=== PATIENT | female | born 1980 | race Caucasian/White ===

== ENCOUNTER 2018-06-04 11:52 | Inpatient (IN) | payer MEDICAID ==
[2018-06-04 13:02] LABS: WHITE BLOOD COUNT 27.7 10^3/ul (4.8-10.8)
[2018-06-04 13:02] LABS: ABNORMAL IP MESSAGE 1; HEMATOCRIT 37.9 % (37.0-47.0); HEMOGLOBIN 12.8 g/dl (12.0-16.0); MEAN CORPUSCULAR HEMOGLOBIN 30.5 pg (29.0-33.0); MEAN CORPUSCULAR HGB CONC 33.8 g/dl (32.0-37.0); MEAN CORPUSCULAR VOLUME 90.2 fl (82.0-101.0); MEAN PLATELET VOLUME 10.4 fl (7.4-10.4); PLATELET COUNT 630 10^3/UL (140-415); RED CELL DISTRIBUTION WIDTH 14.8 % (11.5-14.5)
[2018-06-04 13:03] LABS: POSITIVE DIFF @See below
[2018-06-04 13:04] LABS: ADD MAN DIFF? YES
[2018-06-04] MEDS: ONDANSETRON 4 MG INJ IV (13:06)
[2018-06-04] MEDS: SOD CHLORIDE 0.9% 500 ML IV (13:06)
[2018-06-04] MEDS: HYDROmorphONE 1 MG/ML SYG IV (13:07)
[2018-06-04 13:25] LABS: ALANINE AMINOTRANSFERASE 65 IU/L (13-69); ALBUMIN 3.1 g/dl (3.3-4.9); ALBUMIN/GLOBULIN RATIO 0.91; ALKALINE PHOSPHATASE 179 IU/L (42-121); ANION GAP 17 (5-13); ASPARTATE AMINO TRANSFERASE 86 IU/L (15-46); BILIRUBIN,INDIRECT 0.3 mg/dl (0-1.1); BILIRUBIN,TOTAL 0.3 mg/dl (0.2-1.3); BLOOD UREA NITROGEN 14 mg/dl (7-20); CALCIUM 8.8 mg/dl (8.4-10.2); CARBON DIOXIDE 21 mmol/L (21-31); CHLORIDE 97 mmol/L (97-110); CREATININE 0.56 mg/dl (0.44-1.00); Estimated GFR > 60 mL/min (>60); GLUCOSE 287 mg/dl (70-220); POTASSIUM 4.3 mmol/L (3.5-5.1); SODIUM 135 mmol/L (135-144); TOTAL PROTEIN 6.5 g/dl (6.1-8.1)
[2018-06-04 13:49] LABS: ANISOCYTOSIS 2+ (0-0); BAND NEUTROPHILS #M 3.6 10^3/ul (0.0-0.6); BAND NEUTROPHILS % (M) 13 % (0-4); LYMPHOCYTES #M 2.7 10^3/ul (0.8-2.9); LYMPHOCYTES % (M) 10 % (15-51); METAMYELOCYTES #M 0.5 10^3/ul (0.0-0.0); METAMYELOCYTES %M 2 % (0-0); MONOCYTE #M 1.3 10^3/ul (0.3-0.9); MONOCYTES % (M) 5 % (0-11); MYELOCYTES #M 0.8 10^3/ul (0.0-0.0); MYELOCYTES % (M) 3 % (0-0); PLATELET ESTIMATE INCREASED; RBC MORPHOLOGY COMMENT @See below; REACTIVE LYMPHOCYTES #M 1.1 10^3/ul (0.0-0.0); REACTIVE LYMPHOCYTES% (M) 4 % (0-0); SEG NEUT #M 18.4 10^3/ul (1.6-7.5); SEGMENTED NEUTROPHILS (M) % 63 % (39-77); SMUDGE%M 5 % (0-0); WBC MORPHOLOGY COMMENT @See below
[2018-06-04 14:07] LABS: CREATINE KINASE < 20 IU/L (23-200)
[2018-06-04 14:09] LABS: ADD UMIC NO; UR ASCORBIC ACID NEGATIVE (NEGATIVE); UR BILIRUBIN (Dip) NEGATIVE (NEGATIVE); UR BLOOD (Dip) NEGATIVE (NEGATIVE); UR CLARITY CLEAR (CLEAR); UR COLOR STRAW (YELLOW); UR GLUCOSE (Dip) 1+ mg/dL (NEGATIVE); UR KETONES (Dip) NEGATIVE (NEGATIVE); UR LEUKOCYTE ESTERASE (Dip) NEGATIVE Leu/ul (NEGATIVE); UR NITRITE (Dip) NEGATIVE (NEGATIVE); UR SPECIFIC GRAVITY (Dip) 1.004 (1.003-1.030); UR TOTAL PROTEIN (Dip) NEGATIVE (NEGATIVE); UR UROBILINOGEN (Dip) NEGATIVE (NEGATIVE)
[2018-06-04 14:19] LABS: RHEUMATOID FACTOR NEGATIVE (NEGATIVE)
[2018-06-04] MEDS ORDERED: SOD CHLORIDE 0.9% 1,000 ML IV (14:31)
[2018-06-04] MEDS: METHYLPRED. NA SUCC 500 MG in DEXTROSE 5% 50 ML IVPB (14:36)
[2018-06-04 14:57] LABS: GAMMA GLUTAMYL TRANSPEPTIDASE 355 IU/L (0-50)
[2018-06-04 15:00] LABS: HEMOGLOBIN A1C 5.5 % (0-5.9)
[2018-06-04] MEDS ORDERED: ACETAMINOPHEN 325 MG TAB PO (15:00)
[2018-06-04] MEDS ORDERED: ONDANSETRON 4 MG INJ IV (15:00)
[2018-06-04] MEDS ORDERED: NACL 0.9% 3 ML SYG IV (15:00)
[2018-06-04 15:19] LABS: C-REACTIVE PROTEIN 22.6 mg/dl (0.0-0.9)
[2018-06-04] MEDS ORDERED: LORAZEPAM 2 MG INJ IV (15:30)
[2018-06-04 15:58] LABS: ERYTHROCYTE SEDIMENTATION RATE 113 mm/Hr (0-20)
[2018-06-04] MEDS: INSULIN ASPART [NOVOLOG] 3 ML PEN SC ×2 (17:51→21:25)
[2018-06-04] MEDS: PIPER-TAZO 3.375 GM IV (PMX) 100 ML IVPB ×2 (18:00→23:52)
[2018-06-04] MEDS: SOD CHLORIDE 0.9% 1,000 ML IV (18:00)
[2018-06-04] MEDS: morphine 2 MG INJ IV (18:31)
[2018-06-04 18:50] LABS: TROPONIN-I < 0.012 ng/ml (0.000-0.120)
[2018-06-04 19:05] LABS: LACTIC ACID 2.6 mmol/L (0.5-2.0)
[2018-06-04] MEDS ORDERED: HEPARIN 5,000 UNIT/0.5 ML VIAL (21:14)
[2018-06-04] MEDS: HYDROCODONE/APAP (5/325) TAB PO (21:20)
[2018-06-04] MEDS: GABAPENTIN 300 MG CAP PO (21:20)
[2018-06-04] MEDS: HEPARIN SODIUM 5,000 UNIT/ML VIAL SC (21:23)
[2018-06-05 01:27] LABS: TROPONIN-I < 0.012 ng/ml (0.000-0.120)
[2018-06-05] MEDS: ACCU-CHEK XX (02:00)
[2018-06-05] MEDS: morphine 2 MG INJ IV ×2 (02:18→14:47)
[2018-06-05] MEDS ORDERED: HEPARIN 5,000 UNIT/0.5 ML VIAL ×3 (03:56→20:22)
[2018-06-05 05:19] LABS: ABNORMAL IP MESSAGE 1; HEMATOCRIT 32.4 % (37.0-47.0); HEMOGLOBIN 11.2 g/dl (12.0-16.0); MEAN CORPUSCULAR HEMOGLOBIN 30.6 pg (29.0-33.0); MEAN CORPUSCULAR HGB CONC 34.6 g/dl (32.0-37.0); MEAN CORPUSCULAR VOLUME 88.5 fl (82.0-101.0); MEAN PLATELET VOLUME 11.1 fl (7.4-10.4); PLATELET COUNT 517 10^3/UL (140-415); RED BLOOD COUNT 3.66 10^6/ul (4.20-5.40); RED CELL DISTRIBUTION WIDTH 14.7 % (11.5-14.5)
[2018-06-05 05:19] LABS: WHITE BLOOD COUNT 23.9 10^3/ul (4.8-10.8)
[2018-06-05 05:33] LABS: POSITIVE DIFF @See below
[2018-06-05 05:35] LABS: ADD MAN DIFF? YES
[2018-06-05 05:46] LABS: ALANINE AMINOTRANSFERASE 51 IU/L (13-69); ALBUMIN/GLOBULIN RATIO 0.68; ALKALINE PHOSPHATASE 150 IU/L (42-121); ANION GAP 10 (5-13); ASPARTATE AMINO TRANSFERASE 56 IU/L (15-46); BILIRUBIN,INDIRECT 0.1 mg/dl (0-1.1); BILIRUBIN,TOTAL 0.1 mg/dl (0.2-1.3); BLOOD UREA NITROGEN 15 mg/dl (7-20); CALCIUM 8.4 mg/dl (8.4-10.2); CARBON DIOXIDE 26 mmol/L (21-31); CHLORIDE 100 mmol/L (97-110); CREATININE 0.49 mg/dl (0.44-1.00); Estimated GFR > 60 mL/min (>60); GLUCOSE 162 mg/dl (70-220); POTASSIUM 4.5 mmol/L (3.5-5.1); SODIUM 136 mmol/L (135-144); TOTAL PROTEIN 4.9 g/dl (6.1-8.1)
[2018-06-05] MEDS: PIPER-TAZO 3.375 GM IV (PMX) 100 ML IVPB ×4 (05:51→23:12)
[2018-06-05 05:52] LABS: TROPONIN-I < 0.012 ng/ml (0.000-0.120)
[2018-06-05] MEDS: HEPARIN SODIUM 5,000 UNIT/ML VIAL SC ×3 (05:56→21:14)
[2018-06-05] MEDS: HYDROCODONE/APAP (5/325) TAB PO ×3 (07:50→21:05)
[2018-06-05] MEDS: GABAPENTIN 300 MG CAP PO ×3 (08:31→21:05)
[2018-06-05] MEDS: INSULIN ASPART [NOVOLOG] 3 ML PEN SC ×4 (08:39→21:00)
[2018-06-05 10:01] LABS: ANISOCYTOSIS 1+ (0-0); BAND NEUTROPHILS #M 3.3 10^3/ul (0.0-0.6); BAND NEUTROPHILS % (M) 14 % (0-4); BURR CELLS 1+ (0-0); LYMPHOCYTES #M 1.9 10^3/ul (0.8-2.9); LYMPHOCYTES % (M) 8 % (15-51); METAMYELOCYTES #M 0.9 10^3/ul (0.0-0.0); METAMYELOCYTES %M 4 % (0-0); MONOCYTE #M 1.4 10^3/ul (0.3-0.9); MONOCYTES % (M) 6 % (0-11); MYELOCYTES #M 1.6 10^3/ul (0.0-0.0); MYELOCYTES % (M) 7 % (0-0); PLATELET ESTIMATE NORMAL; PLATELET MORPHOLOGY COMMENT @See below; POIKILOCYTOSIS 1+ (0-0); POLYCHROMASIA 3+ (0-0); REACTIVE LYMPHOCYTES #M 0.2 10^3/ul (0.0-0.0); REACTIVE LYMPHOCYTES% (M) 1 % (0-0); SEG NEUT #M 15.1 10^3/ul (1.6-7.5); SEGMENTED NEUTROPHILS (M) % 60 % (39-77); SMUDGE%M 2 % (0-0); TARGET CELLS 1+ (0-0)
[2018-06-05] MEDS: SOD CHLORIDE 0.9% 1,000 ML IV ×2 (10:39→22:05)
[2018-06-05] MEDS: predniSONE 20 MG TAB PO (10:42)
[2018-06-05 13:26] LABS: ANA SCREEN NEGATIVE (NEGATIVE)
[2018-06-06] MEDS: ACCU-CHEK XX (01:44)
[2018-06-06] MEDS: morphine 2 MG INJ IV ×4 (02:21→23:24)
[2018-06-06] MEDS ORDERED: HEPARIN 5,000 UNIT/0.5 ML VIAL ×3 (04:47→20:19)
[2018-06-06] MEDS: PIPER-TAZO 3.375 GM IV (PMX) 100 ML IVPB ×3 (05:04→17:49)
[2018-06-06] MEDS: HYDROCODONE/APAP (5/325) TAB PO ×3 (05:05→17:59)
[2018-06-06] MEDS: HEPARIN SODIUM 5,000 UNIT/ML VIAL SC ×3 (05:20→21:41)
[2018-06-06 05:28] LABS: WHITE BLOOD COUNT 23.5 10^3/ul (4.8-10.8)
[2018-06-06 05:28] LABS: ABNORMAL IP MESSAGE 1; HEMATOCRIT 34.9 % (37.0-47.0); HEMOGLOBIN 11.8 g/dl (12.0-16.0); MEAN CORPUSCULAR HEMOGLOBIN 30.4 pg (29.0-33.0); MEAN CORPUSCULAR HGB CONC 33.8 g/dl (32.0-37.0); MEAN CORPUSCULAR VOLUME 89.9 fl (82.0-101.0); MEAN PLATELET VOLUME 10.5 fl (7.4-10.4); PLATELET COUNT 626 10^3/UL (140-415); RED BLOOD COUNT 3.88 10^6/ul (4.20-5.40); RED CELL DISTRIBUTION WIDTH 14.8 % (11.5-14.5)
[2018-06-06 05:42] LABS: POSITIVE DIFF @See below
[2018-06-06 05:43] LABS: ADD MAN DIFF? YES
[2018-06-06 05:51] LABS: LACTIC ACID 1.9 mmol/L (0.5-2.0)
[2018-06-06 06:06] LABS: ANION GAP 7 (5-13); BLOOD UREA NITROGEN 18 mg/dl (7-20); CALCIUM 7.9 mg/dl (8.4-10.2); CARBON DIOXIDE 27 mmol/L (21-31); CHLORIDE 103 mmol/L (97-110); CREATININE 0.55 mg/dl (0.44-1.00); Estimated GFR > 60 mL/min (>60); GLUCOSE 85 mg/dl (70-220); MAGNESIUM 2.1 mg/dl (1.7-2.5); PHOSPHORUS 3.1 mg/dl (2.5-4.9); SODIUM 137 mmol/L (135-144)
[2018-06-06 06:19] LABS: POTASSIUM 4.2 mmol/L (3.5-5.1)
[2018-06-06] MEDS: SOD CHLORIDE 0.9% 1,000 ML IV (06:39)
[2018-06-06 07:43] LABS: ANISOCYTOSIS 2+ (0-0); BAND NEUTROPHILS #M 0.9 10^3/ul (0.0-0.6); BAND NEUTROPHILS % (M) 4 % (0-4); GIANT THROMBO% (M) 1 % (0-0); LYMPHOCYTES #M 6.8 10^3/ul (0.8-2.9); LYMPHOCYTES % (M) 29 % (15-51); METAMYELOCYTES #M 0.2 10^3/ul (0.0-0.0); METAMYELOCYTES %M 1 % (0-0); MONOCYTE #M 1.1 10^3/ul (0.3-0.9); MONOCYTES % (M) 5 % (0-11); MYELOCYTES #M 0.9 10^3/ul (0.0-0.0); MYELOCYTES % (M) 4 % (0-0); PLATELET ESTIMATE INCREASED; POIKILOCYTOSIS 1+ (0-0); POLYCHROMASIA 1+ (0-0); PROMYELOCYTES #M 0.4 10^3/ul (0-0); PROMYELOCYTES % (M) 2 % (0-0); REACTIVE LYMPHOCYTES #M 0.7 10^3/ul (0.0-0.0); REACTIVE LYMPHOCYTES% (M) 3 % (0-0); SEG NEUT #M 12.4 10^3/ul (1.6-7.5); SEGMENTED NEUTROPHILS (M) % 52 % (39-77); SMUDGE%M 25 % (0-0); TARGET CELLS 1+ (0-0)
[2018-06-06] MEDS: INSULIN ASPART [NOVOLOG] 3 ML PEN SC ×4 (07:50→20:26)
[2018-06-06] MEDS: predniSONE 20 MG TAB PO (08:15)
[2018-06-06] MEDS: GABAPENTIN 300 MG CAP PO ×3 (08:15→20:26)
[2018-06-07] MEDS: HYDROCODONE/APAP (5/325) TAB PO ×2 (00:39→18:07)
[2018-06-07] MEDS: PIPER-TAZO 3.375 GM IV (PMX) 100 ML IVPB ×3 (01:23→12:25)
[2018-06-07] MEDS: ACCU-CHEK XX (02:00)
[2018-06-07] MEDS: morphine 2 MG INJ IV ×4 (03:52→20:41)
[2018-06-07] MEDS ORDERED: HEPARIN 5,000 UNIT/0.5 ML VIAL ×3 (05:11→20:27)
[2018-06-07 05:22] LABS: ABNORMAL IP MESSAGE 1; HEMATOCRIT 35.2 % (37.0-47.0); HEMOGLOBIN 11.8 g/dl (12.0-16.0); MEAN CORPUSCULAR HEMOGLOBIN 30.3 pg (29.0-33.0); MEAN CORPUSCULAR HGB CONC 33.5 g/dl (32.0-37.0); MEAN CORPUSCULAR VOLUME 90.5 fl (82.0-101.0); MEAN PLATELET VOLUME 10.6 fl (7.4-10.4); PLATELET COUNT 626 10^3/UL (140-415); RED BLOOD COUNT 3.89 10^6/ul (4.20-5.40); RED CELL DISTRIBUTION WIDTH 14.7 % (11.5-14.5)
[2018-06-07 05:22] LABS: WHITE BLOOD COUNT 21.7 10^3/ul (4.8-10.8)
[2018-06-07 05:30] LABS: ADD MAN DIFF? YES; POSITIVE DIFF @See below
[2018-06-07 05:47] LABS: ANION GAP 8 (5-13); BLOOD UREA NITROGEN 19 mg/dl (7-20); CALCIUM 8.1 mg/dl (8.4-10.2); CARBON DIOXIDE 26 mmol/L (21-31); CHLORIDE 103 mmol/L (97-110); CREATININE 0.65 mg/dl (0.44-1.00); Estimated GFR > 60 mL/min (>60); GLUCOSE 84 mg/dl (70-220); MAGNESIUM 1.8 mg/dl (1.7-2.5); PHOSPHORUS 3.1 mg/dl (2.5-4.9); POTASSIUM 3.9 mmol/L (3.5-5.1); SODIUM 137 mmol/L (135-144)
[2018-06-07] MEDS: HEPARIN SODIUM 5,000 UNIT/ML VIAL SC ×3 (05:59→23:04)
[2018-06-07] MEDS: INSULIN ASPART [NOVOLOG] 3 ML PEN SC ×4 (07:50→21:00)
[2018-06-07] MEDS: GABAPENTIN 300 MG CAP PO ×2 (09:24→12:25)
[2018-06-07] MEDS: predniSONE 20 MG TAB PO (09:24)
[2018-06-07 10:35] LABS: BAND NEUTROPHILS #M 0.8 10^3/ul (0.0-0.6); BAND NEUTROPHILS % (M) 4 % (0-4); GIANT THROMBO% (M) 1 % (0-0); LYMPHOCYTES #M 7.5 10^3/ul (0.8-2.9); LYMPHOCYTES % (M) 35 % (15-51); MONOCYTE #M 0.6 10^3/ul (0.3-0.9); MONOCYTES % (M) 3 % (0-11); MYELOCYTES #M 0.8 10^3/ul (0.0-0.0); MYELOCYTES % (M) 4 % (0-0); PLATELET ESTIMATE INCREASED; PROMYELOCYTES #M 0.4 10^3/ul (0-0); PROMYELOCYTES % (M) 2 % (0-0); REACTIVE LYMPHOCYTES #M 0.4 10^3/ul (0.0-0.0); REACTIVE LYMPHOCYTES% (M) 2 % (0-0); SEG NEUT #M 11.2 10^3/ul (1.6-7.5); SEGMENTED NEUTROPHILS (M) % 51 % (39-77); SMUDGE%M 10 % (0-0)
[2018-06-07 20:16] LABS: ANTI-DNA (DOUBLE STRANDED) <95 U/mL (< 301)
[2018-06-08] MEDS: morphine 2 MG INJ IV ×4 (01:32→23:02)
[2018-06-08] MEDS: ACCU-CHEK XX (02:00)
[2018-06-08] MEDS: HYDROCODONE/APAP (5/325) TAB PO ×3 (04:53→21:24)
[2018-06-08 05:18] LABS: ABNORMAL IP MESSAGE 1; HEMATOCRIT 34.8 % (37.0-47.0); HEMOGLOBIN 11.8 g/dl (12.0-16.0); MEAN CORPUSCULAR HEMOGLOBIN 30.3 pg (29.0-33.0); MEAN CORPUSCULAR HGB CONC 33.9 g/dl (32.0-37.0); MEAN CORPUSCULAR VOLUME 89.5 fl (82.0-101.0); MEAN PLATELET VOLUME 10.4 fl (7.4-10.4); PLATELET COUNT 615 10^3/UL (140-415); RED BLOOD COUNT 3.89 10^6/ul (4.20-5.40); RED CELL DISTRIBUTION WIDTH 14.7 % (11.5-14.5)
[2018-06-08 05:18] LABS: WHITE BLOOD COUNT 20.4 10^3/ul (4.8-10.8)
[2018-06-08 05:19] LABS: ADD MAN DIFF? YES; POSITIVE DIFF @See below
[2018-06-08 05:45] LABS: ANION GAP 7 (5-13); BLOOD UREA NITROGEN 15 mg/dl (7-20); CALCIUM 8.7 mg/dl (8.4-10.2); CARBON DIOXIDE 27 mmol/L (21-31); CHLORIDE 101 mmol/L (97-110); CREATININE 0.51 mg/dl (0.44-1.00); Estimated GFR > 60 mL/min (>60); GLUCOSE 84 mg/dl (70-220); SODIUM 135 mmol/L (135-144)
[2018-06-08 06:50] LABS: ANISOCYTOSIS 2+ (0-0); BAND NEUTROPHILS #M 0.2 10^3/ul (0.0-0.6); BAND NEUTROPHILS % (M) 1 % (0-4); GIANT THROMBO% (M) 1 % (0-0); LYMPHOCYTES #M 5.9 10^3/ul (0.8-2.9); LYMPHOCYTES % (M) 29 % (15-51); MONOCYTE #M 1.6 10^3/ul (0.3-0.9); MONOCYTES % (M) 8 % (0-11); MYELOCYTES #M 0.4 10^3/ul (0.0-0.0); MYELOCYTES % (M) 2 % (0-0); PLATELET ESTIMATE INCREASED; PROMYELOCYTES #M 0.2 10^3/ul (0-0); PROMYELOCYTES % (M) 1 % (0-0); SEG NEUT #M 12.1 10^3/ul (1.6-7.5); SEGMENTED NEUTROPHILS (M) % 59 % (39-77); SMUDGE%M 7 % (0-0)
[2018-06-08] MEDS ORDERED: HEPARIN 5,000 UNIT/0.5 ML VIAL ×2 (08:26→21:06)
[2018-06-08] MEDS: INSULIN ASPART [NOVOLOG] 3 ML PEN SC ×4 (08:58→21:00)
[2018-06-08] MEDS: HEPARIN SODIUM 5,000 UNIT/ML VIAL SC ×2 (09:00→21:16)
[2018-06-08] MEDS: LORAZEPAM 2 MG INJ IM (16:04)
[2018-06-08 21:02] LABS: CYCLIC CITRULLINATED PEP IGG <16 UNITS
[2018-06-09] MEDS: ACCU-CHEK XX ×2 (02:00→23:15)
[2018-06-09] MEDS: morphine 2 MG INJ IV ×5 (03:01→22:07)
[2018-06-09] MEDS: HYDROCODONE/APAP (5/325) TAB PO ×3 (05:05→19:19)
[2018-06-09 05:24] LABS: ADD MAN DIFF? NO
[2018-06-09 05:30] LABS: WHITE BLOOD COUNT 20.4 10^3/ul (4.8-10.8)
[2018-06-09 05:30] LABS: BASOPHIL # 0.1 10^3/ul (0.0-0.1); BASOPHILS % 0.3 % (0.0-2.0); EOSINOPHILS # 0.1 10^3/ul (0.0-0.5); EOSINOPHILS % 0.5 % (0.0-7.0); HEMATOCRIT 36.1 % (37.0-47.0); HEMOGLOBIN 12.2 g/dl (12.0-16.0); LYMPHOCYTES # 4.1 10^3/ul (0.8-2.9); MEAN CORPUSCULAR HEMOGLOBIN 30.7 pg (29.0-33.0); MEAN CORPUSCULAR HGB CONC 33.8 g/dl (32.0-37.0); MEAN CORPUSCULAR VOLUME 90.7 fl (82.0-101.0); MEAN PLATELET VOLUME 10.1 fl (7.4-10.4); MONOCYTE # 0.8 10^3/ul (0.3-0.9); MONOCYTES % 3.8 % (0.0-11.0); NEUTROPHIL # 14.4 10^3/ul (1.6-7.5); NEUTROPHILS % 70.8 % (39.0-77.0); PLATELET COUNT 656 10^3/UL (140-415); RED BLOOD COUNT 3.98 10^6/ul (4.20-5.40); RED CELL DISTRIBUTION WIDTH 14.4 % (11.5-14.5)
[2018-06-09 05:47] LABS: POSITIVE DIFF @See below
[2018-06-09] MEDS ORDERED: HEPARIN 5,000 UNIT/0.5 ML VIAL ×2 (08:22→20:38)
[2018-06-09] MEDS: INSULIN ASPART [NOVOLOG] 3 ML PEN SC ×4 (08:58→20:42)
[2018-06-09] MEDS: HEPARIN SODIUM 5,000 UNIT/ML VIAL SC ×2 (09:06→20:44)
[2018-06-09] MEDS: SENNA TAB PO ×2 (09:08→20:43)
[2018-06-10] MEDS: HYDROCODONE/APAP (5/325) TAB PO ×4 (01:13→23:03)
[2018-06-10] MEDS: morphine 2 MG INJ IV ×5 (02:05→19:38)
[2018-06-10] MEDS: INSULIN ASPART [NOVOLOG] 3 ML PEN SC ×4 (07:50→20:15)
[2018-06-10] MEDS ORDERED: HEPARIN 5,000 UNIT/0.5 ML VIAL ×2 (08:13→20:05)
[2018-06-10] MEDS: SENNA TAB PO ×2 (08:57→20:08)
[2018-06-10] MEDS: HEPARIN SODIUM 5,000 UNIT/ML VIAL SC ×2 (09:01→20:10)
[2018-06-10] MEDS: ACETAMINOPHEN 325 MG TAB PO (13:46)
[2018-06-11] MEDS: morphine 2 MG INJ IV ×3 (00:21→08:42)
[2018-06-11] MEDS: ACCU-CHEK XX (02:00)
[2018-06-11 05:41] LABS: ADD MAN DIFF? NO
[2018-06-11 05:45] LABS: BASOPHILS % 0.2 % (0.0-2.0); EOSINOPHILS # 0.1 10^3/ul (0.0-0.5); EOSINOPHILS % 0.6 % (0.0-7.0); HEMATOCRIT 33.3 % (37.0-47.0); HEMOGLOBIN 11.3 g/dl (12.0-16.0); LYMPHOCYTES # 3.1 10^3/ul (0.8-2.9); LYMPHOCYTES % 18.8 % (15.0-51.0); MEAN CORPUSCULAR HEMOGLOBIN 30.9 pg (29.0-33.0); MEAN CORPUSCULAR HGB CONC 33.9 g/dl (32.0-37.0); MEAN PLATELET VOLUME 9.8 fl (7.4-10.4); MONOCYTE # 0.9 10^3/ul (0.3-0.9); MONOCYTES % 5.5 % (0.0-11.0); NEUTROPHIL # 11.9 10^3/ul (1.6-7.5); NEUTROPHILS % 72.4 % (39.0-77.0); PLATELET COUNT 679 10^3/UL (140-415); RED BLOOD COUNT 3.66 10^6/ul (4.20-5.40); RED CELL DISTRIBUTION WIDTH 14.1 % (11.5-14.5)
[2018-06-11 05:45] LABS: WHITE BLOOD COUNT 16.5 10^3/ul (4.8-10.8)
[2018-06-11] MEDS: HYDROCODONE/APAP (5/325) TAB PO ×4 (06:30→20:56)
[2018-06-11] MEDS: INSULIN ASPART [NOVOLOG] 3 ML PEN SC ×4 (07:50→20:49)
[2018-06-11] MEDS ORDERED: HEPARIN 5,000 UNIT/0.5 ML VIAL ×2 (08:28→20:53)
[2018-06-11] MEDS: IBUPROFEN 200 MG TAB PO ×2 (08:42→15:51)
[2018-06-11] MEDS: SENNA TAB PO ×2 (08:42→20:55)
[2018-06-11] MEDS: HEPARIN SODIUM 5,000 UNIT/ML VIAL SC ×2 (08:47→20:59)
[2018-06-11] MEDS: GABAPENTIN 100 MG CAP PO (20:56)
[2018-06-12] MEDS: ACCU-CHEK XX (01:36)
[2018-06-12] MEDS: HYDROCODONE/APAP (5/325) TAB PO ×3 (01:40→11:58)
[2018-06-12] MEDS ORDERED: HEPARIN 5,000 UNIT/0.5 ML VIAL (08:50)
[2018-06-12] MEDS: INSULIN ASPART [NOVOLOG] 3 ML PEN SC ×2 (08:52→12:58)
[2018-06-12] MEDS: GABAPENTIN 100 MG CAP PO ×2 (08:54→12:57)
[2018-06-12] MEDS: SENNA TAB PO (09:00)
[2018-06-12] MEDS: HEPARIN SODIUM 5,000 UNIT/ML VIAL SC (09:47)
[2018-06-12] MEDS: IBUPROFEN 200 MG TAB PO (12:57)
== END 2018-06-12 14:20 | disposition home or self-care (01) | DRG 563 ==
LOC: FTE 11:52 → MS1 14:33
DX: S63.92XA Sprain of unspecified part of left wrist and hand, initial encounter (principal); S63.91XA Sprain of unspecified part of right wrist and hand, initial encounter; S83.92XA Sprain of unspecified site of left knee, initial encounter; S83.91XA Sprain of unspecified site of right knee, initial encounter; S93.402A Sprain of unspecified ligament of left ankle, initial encounter; R07.89 Other chest pain; R26.2 Difficulty in walking, not elsewhere classified; M13.0 Polyarthritis, unspecified; T38.0X5A Adverse effect of glucocorticoids and synthetic analogues, initial encounter; D72.829 Elevated white blood cell count, unspecified; F17.200 Nicotine dependence, unspecified, uncomplicated; W01.0XXA Fall on same level from slipping, tripping and stumbling without subsequent striking against object, initial encounter
CPT/HCPCS: 70552; 72142; 72147; 72149; 73110; 73130-LT; 73130-RT; 73562; 73610; 73630-LT; 80048; 80053; 81003; 82550; 82962; 82977; 83036; 83605; 83735; 84100; 84484; 85025; 85651; 86038; 86140; 86200; 86226; 86430; 87040; 93306; 93970; 96374; 96375; 97110; 97116; 97162; 97530; 99285-25

== ENCOUNTER 2018-11-21 21:22 | Emergency (ER) | payer SELFPAY, OTHER, MEDICAID ==
[2018-11-21] MEDS: morphine 4 MG/ML VIAL IM (21:51)
[2018-11-21] MEDS: ONDANSETRON (ODT) 4 MG TAB ODT (21:51)
[2018-11-21] MEDS: ONDANSETRON 4 MG INJ IV (21:53)
[2018-11-21] MEDS: morphine 4 MG/ML VIAL IV (21:53)
== END 2018-11-21 22:20 | disposition home or self-care (01) ==
LOC: E/R 21:22
DX: S90.01XA Contusion of right ankle, initial encounter (principal); F17.210 Nicotine dependence, cigarettes, uncomplicated; X50.1XXA Overexertion from prolonged static or awkward postures, initial encounter; Y92.9 Unspecified place or not applicable
CPT/HCPCS: 29515; 73610-RT; 96372; 99284-25